=== PATIENT | female | born 1985 | race Caucasian/White ===

== ENCOUNTER 2016-09-28 17:53 | Emergency (ER) | payer OTHER ==
[~2016-09-28] VITALS: Ht 170.2 cm; Wt 66.1 kg
[2016-09-28] MEDS ORDERED: MOTRIN800 MG PO (19:22)
[2016-09-28] MEDS ORDERED: LIDODERM 5% P1 PATCH TD (19:22)
[2016-09-28] MEDS ORDERED: NORCO 7.5/321 TABLET PO (19:22)
[2016-09-28] MEDS ORDERED: VALIUM5 MG PO (19:22)
[2016-09-28 19:41] VITALS: BP 117/66
== END 2016-09-28 19:43 | disposition home or self-care (01) ==
LOC: EME 17:53
DX: M51.17 Intervertebral disc disorders with radiculopathy, lumbosacral region (principal); S39.012A Strain of muscle, fascia and tendon of lower back, initial encounter; Z85.6 Personal history of leukemia
CPT/HCPCS: 99281; 99284; J3010

== ENCOUNTER 2016-10-10 16:41 | Emergency (ER) | payer OTHER ==
[~2016-10-10] VITALS: Ht 170.2 cm; Wt 65.0 kg
[~2016-10-10 16:41] MED LIST: LIDODERM 5% P1 PATCH TD; MOTRIN800 MG PO; NORCO 7.5/321 TABLET PO; VALIUM5 MG PO
[2016-10-10 18:47] LABS: ADD MIUA? YES; BILIRUBIN NEGATIVE; BLOOD LARGE; COLOR AMBER ((YELLOW)); GLUCOSE (STRIP) NEGATIVE; KETONES 5; LEUKOCYTES MODERATE; NITRITE POSITIVE; PROTEIN (STRIP) 100
[2016-10-10 19:05] VITALS: BP 116/86
[2016-10-10 19:05] LABS: EPITHELIAL CELLS RARE /HPF; RED BLOOD CELLS TNTC /HPF (0-5); WHITE BLOOD CELLS TNTC /HPF (0-5)
[2016-10-10 19:06] LABS: BACTERIA 3+ /HPF; MUCUS RARE /LPF; UCUL ADDED? YES
[2016-10-13 13:22] LABS: CHLAMYDIA TRACHOMATIS NEGATIVE; NEISSERIA GONORRHOEAE NEGATIVE
== END 2016-10-10 19:06 | disposition home or self-care (01) ==
LOC: EME 16:41
PROVIDERS: Physician Assistant Medical
DX: N30.91 Cystitis, unspecified with hematuria (principal); F17.200 Nicotine dependence, unspecified, uncomplicated
CPT/HCPCS: 81003; 87077; 87086; 87186; 87491; 87591; 99281; 99283; J1885

== ENCOUNTER 2016-12-01 09:29 | Emergency (ER) | payer OTHER ==
[~2016-12-01] VITALS: Ht 170.2 cm; Wt 67.9 kg
[2016-12-01] MEDS ORDERED: FLEXERIL10 MG PO (12:13)
[2016-12-01] MEDS ORDERED: PERCOCET 5/31 TABLET PO (12:13)
[2016-12-01 12:25] VITALS: BP 103/61
== END 2016-12-01 12:26 | disposition home or self-care (01) ==
LOC: EME 09:29
DX: S20.229A Contusion of unspecified back wall of thorax, initial encounter (principal); M54.2 Cervicalgia; W10.9XXA Fall (on) (from) unspecified stairs and steps, initial encounter; Z88.0 Allergy status to penicillin
CPT/HCPCS: 72040; 72070; 72100; 99281; 99284; J1885